=== PATIENT | female | born 1975 | race Caucasian/White ===

== ENCOUNTER 2016-10-17 21:10 | Emergency (ER) | payer MEDICAID ==
[2016-10-17 21:10] VITALS: BMI 27.3
[2016-10-17] MEDS ORDERED: Sodium Chloride 0.9% 1,000 ML IV ONE (22:18)
[2016-10-17] MEDS ORDERED: Iohexol 240 (50 ml) PO ONE (22:19)
--- NOTE | 2016-10-17 23:03 | C.PDOC ---
History Of Present Illness Patient is a 41 year old female who presents to the ER with a complaint of abdominal pain since 4pm yesterday; associated with nausea and vomiting. Patient states the pain is diffusely throughout her abdomen. Denies diarrhea, fever, or chills. Chief Complaint (Nursing): Abdominal Pain History Per: Patient History/Exam Limitations: no limitations Onset/Duration Of Symptoms: Days Current Symptoms Are (Timing): Still Present Location Of Pain/Discomfort: Diffuse Radiation Of Pain To:: None Quality Of Discomfort: Unable To Describe Associated Symptoms: Nausea, Vomiting. denies: Fever, Chills, Diarrhea Exacerbating Factors: None Alleviating Factors: None Recent travel outside of the [place]: No Abnormal Vaginal Bleeding: No Past Medical History Reviewed: Historical Data, Nursing Documentation, Vital Signs Vital Signs: Last Vital Signs Temp 98.0 F 10/18/16 01:55 Pulse 67 10/18/16 01:55 Resp 18 10/18/16 01:55 BP 103/70 10/18/16 01:55 Pulse Ox 100 10/18/16 02:39 - Medical History PMH: Depression, HTN - [facility] Procedures ESOPHAGOGASTRODUODENOSCOPY [EGD] W/CLOSED BIOPSY (05/24/14) Family History: States: Unknown Family Hx - Social History Hx Tobacco Use: No Hx Alcohol Use: No Hx Substance Use: No - Immunization History Hx Tetanus Toxoid Vaccination: No Hx Influenza Vaccination: Yes Hx Pneumococcal Vaccination: No Review Of Systems Constitutional: Negative for: Fever, Chills Gastrointestinal: Positive for: Nausea, Vomiting, Abdominal Pain (Diffuse). Negative for: Diarrhea Physical Exam - Physical Exam Appears: Non-toxic Skin: Normal Color, Warm, Dry Head: Atraumatic, Normacephalic Oral Mucosa: Moist Chest: Symmetrical, No Tenderness Cardiovascular: Rhythm Regular, No Murmur Respiratory: Normal Breath Sounds, No Rales, No Rhonchi, No Wheezing Gastrointestinal/Abdominal: Soft, Tenderness (LLQ, RLQ mostly), No Guarding, Rebound (RLQ) Neurological/Psych: Oriented x3, Normal Speech, Normal Cognition ED Course And Treatment - Laboratory Results Result Diagrams: 10/17/16 23:33 10/17/16 23:33 O2 Sat by Pulse Oximetry: 100 (Room air) Pulse Ox Interpretation: Normal - CT Scan/US CT abd/pel Other Rad Studies (CT/US): Read By Radiologist, Radiology Report Reviewed CT/US Interpretation: The pancreas is normal. No gallstones. No hydronephrosis or perinephric stranding. The bowel appears normal. The appendix is identified coronal images 50 through 54 measuring 4 mm in diameter. No. periappendiceal inflammatory changes. There is a 2 cm left ovarian cyst. IMPRESSION: Left ovarian cyst.EXAM: CT Abdomen and Pelvis With Intravenous Contrast. CLINICAL HISTORY: 41 years old, female; Pain; Abdominal pain and other: Lower abd; Patient HX: 7-; Additional. info: Abd pain. TECHNIQUE: Axial computed tomography images of the abdomen and pelvis with intravenous contrast. This CT. exam was performed using one or more of the following dose reduction techniques: automated. exposure control, adjustment of the mA and/or kV according to patient size, and/or use of iterative. reconstruction technique. Coronal and sagittal reformatted images were created and reviewed. CONTRAST: 100 mL of [id number] administered intravenously. EXAM DATE/TIME: 10/17/2016 10:16 PM. COMPARISON: No relevant prior studies available. FINDINGS : Liver and spleen are borderline prominent. Slight prominence of the vasculature of the left upper quadrant. Progress Note: CT abd/pel, blood work, and urinalysis ordered. Toradol and IV fluids administered. Disposition Counseled Patient/Family Regarding: Diagnosis - Disposition Referrals: [facility] [Outside] Disposition: HOME/ ROUTINE Disposition Time: 02:44 Condition: STABLE Prescriptions: Ondansetron ODT [Zofran ODT] 1 odt PO BID PRN #6 odt PRN Reason: Nausea/Vomiting Phenobarb/Hyoscy/Atropine/Scop [ Tablet] 16.2 mg PO Q6 #12 tablet Instructions: Gastroenteritis (ED), Acute Nausea and Vomiting (ED) - POA Present On Arrival: None - Clinical Impression Clinical Impression: Nausea, Vomiting, Gastroenteritis - Scribe Statement The provider has reviewed the documentation as recorded by the Veroibjudy Ricardo All medical record entries made by the Veroibe were at my direction and personally dictated by me. I have reviewed the chart and agree that the record accurately reflects my personal performance of the history, physical exam, medical decision making, and the department course for this patient. I have also personally directed, reviewed, and agree with the discharge instructions and disposition.
[2016-10-17 23:08] LABS: HCG,QUALITATIVE URINE NEGATIVE (NEGATIVE)
[2016-10-17 23:12] LABS: SQUAMOUS EPITHIAL 2 /hpf (0-5); URINE BACTERIA RARE (<OCC); URINE BILIRUBIN NEGATIVE (NEGATIVE); URINE BLOOD NEGATIVE (NEGATIVE); URINE CLARITY Clear (Clear); URINE COLOR Yellow (YELLOW); URINE GLUCOSE (UA) NORMAL (Normal); URINE HYALINE CAST 0-2 /lpf (0-2); URINE NITRATE NEGATIVE (NEGATIVE); URINE PROTEIN NEGATIVE (NEGATIVE); URINE UROBILINOGEN NORMAL mg/dL (0.2-1.0)
[2016-10-17 23:13] LABS: URINE LEUKOCYTE ESTERASE NEGATIVE Leu/uL (Negative)
[2016-10-17] MEDS ORDERED: Sodium Chloride 0.9% 1,000 ML ONE (23:18)
[2016-10-17] MEDS ORDERED: Iohexol 240 (50 ml) ONE (23:18)
[2016-10-17 23:36] LABS: BASO % 0.5 % (0.0-2.0); EOS # 0.1 K/uL (0.0-0.7); EOS % 1.5 % (0.0-4.0); HEMOGLOBIN 11.9 g/dL (11.0-16.0); LYMPH # 2.2 K/uL (1.0-4.3); LYMPH % 31.1 % (20.0-40.0); MEAN CELL VOLUME 91.9 fL (81.0-99.0); MEAN CORPUSCULAR HEMOGLOBIN 31.7 pg (27.0-31.0); MEAN CORPUSCULAR HGB CONC 34.5 g/dL (33.0-37.0); MEAN PLATELET VOLUME 8.4 fL (7.2-11.7); MONO # 0.5 K/uL (0.0-0.8); MONO % 7.3 % (0.0-10.0); NEUT # 4.2 K/uL (1.8-7.0); NEUT % 59.6 % (50.0-75.0); RBC 3.77 Mil/uL (3.80-5.20); RED CELL DISTRIBUTION WIDTH 13.2 % (11.5-14.5); WHITE BLOOD COUNT 7.1 K/uL (4.8-10.8)
[2016-10-17 23:50] LABS: ALBUMIN 3.5 g/dL (3.5-5.0)
[2016-10-17 23:53] LABS: GFR AFRICAN-AMERICAN > 60; GFR NON-AFRICAN AMERICAN > 60
[2016-10-17 23:54] LABS: ALB/GLOB RATIO 1.1 (1.0-2.1); ALT/SGPT 23 U/L (9-52); AST/SGOT 19 U/L (14-36); BLOOD UREA NITROGEN 13 mg/dL (7-17); CALCIUM 8.4 mg/dl (8.6-10.4); LIPASE 56 U/L (23-300)
[2016-10-18] MEDS ORDERED: Iodixanol 320 MG/ML 100 ML BOTTLE IV ONE (01:02)
[2016-10-18 02:30] VITALS: RESP 18
--- NOTE | 2016-10-18 02:36 | CT ---
EXAM: CT Abdomen and Pelvis With Intravenous Contrast CLINICAL HISTORY: 41 years old, female; Pain; Abdominal pain and other: Lower abd; Patient HX: 7--17; Additional info: Abd pain TECHNIQUE: Axial computed tomography images of the abdomen and pelvis with intravenous contrast. This CT exam was performed using one or more of the following dose reduction techniques: automated exposure control, adjustment of the mA and/or kV according to patient size, and/or use of iterative reconstruction technique. Coronal and sagittal reformatted images were created and reviewed. CONTRAST: 100 mL of [id number] administered intravenously. EXAM DATE/TIME: 10/17/2016 10:16 PM COMPARISON: No relevant prior studies available. FINDINGS: Liver and spleen are borderline prominent. Slight prominence of the vasculature of the left upper quadrant. The pancreas is normal. No gallstones. No hydronephrosis or perinephric stranding. The bowel appears normal. The appendix is identified coronal images 50 through 54 measuring 4 mm in diameter. No periappendiceal inflammatory changes. There is a 2 cm left ovarian cyst. IMPRESSION: Left ovarian cyst.
[2016-10-18 03:15] VITALS: BP 109/73; PULSE 74; TEMP 98.6; O2SAT 99
== END 2016-10-18 03:11 | disposition home or self-care (01) ==
LOC: C.ER 21:10
DX: K52.9 Noninfective gastroenteritis and colitis, unspecified (principal)
CPT/HCPCS: 74177; 80053; 81001; 83690; 84702; 84703; 85025; 96361; 96374; 99284; J1885; J7040; Q9966; Q9967

== ENCOUNTER 2017-03-03 03:54 | Emergency (ER) | payer SELFPAY ==
[2017-03-03 03:54] VITALS: BMI 27.3
[2017-03-03 03:59] VITALS: TEMP 98.4; O2SAT 98
[2017-03-03] MEDS ORDERED: Sodium Chloride 0.9% 500 ML IV STA (04:22)
[2017-03-03 04:28] LABS: HEMATOCRIT 39.1 % (34.0-47.0); MEAN CELL VOLUME 91.1 fL (81.0-99.0); MEAN CORPUSCULAR HEMOGLOBIN 30.9 pg (27.0-31.0); MEAN CORPUSCULAR HGB CONC 33.9 g/dL (33.0-37.0); MEAN PLATELET VOLUME 9.2 fL (7.2-11.7); RED CELL DISTRIBUTION WIDTH 13.8 % (11.5-14.5); WHITE BLOOD COUNT 5.2 K/uL (4.8-10.8)
[2017-03-03] MEDS ORDERED: Sodium Chloride 0.9% 1,000 ML ONE (04:44)
[2017-03-03 04:47] LABS: CHLORIDE 103 mmol/L (98-107); SODIUM 132 mmol/L (132-148)
[2017-03-03 04:49] LABS: GFR AFRICAN-AMERICAN > 60
[2017-03-03 04:50] LABS: ALKALINE PHOSPHATASE 48 U/L (38-126); ALT/SGPT 19 U/L (9-52); AST/SGOT 36 U/L (14-36); BLOOD UREA NITROGEN 17 mg/dL (7-17); CARBON DIOXIDE 19 mmol/L (22-30); GLUCOSE,RANDOM 94 mg/dL (65-105); TOTAL PROTEIN 8.2 g/dL (6.3-8.3)
[2017-03-03 04:51] LABS: CALCIUM 8.3 mg/dl (8.6-10.4)
[2017-03-03 04:52] LABS: POTASSIUM 4.2 mmol/L (3.6-5.2)
--- NOTE | 2017-03-03 05:01 | C.PDOC ---
History Of Present Illness 41 year old female presents to the ER with a complaint of dizziness that she describes as a spinning sensation since yesterday that worsens with positional change. Patient reports the dizziness is associated with nausea, vomiting, and epigastric discomfort. Patient notes she has a Hx of similar symptoms in the past at least once a year and has been seen in the ER for the same complaint. Denies abdominal pain at this time, change in vision, or headache. Time Seen by Provider: 03/03/17 04:05 Chief Complaint (Nursing): Abdominal Pain History Per: Patient History/Exam Limitations: no limitations Onset/Duration Of Symptoms: Hrs Current Symptoms Are (Timing): Still Present Location Of Pain/Discomfort: Epigastric Radiation Of Pain To:: None Quality Of Discomfort: Unable To Describe Associated Symptoms: Nausea, Vomiting. denies: Fever, Chills Exacerbating Factors: Other (Positional change) Alleviating Factors: None Recent travel outside of the [place]: No Past Medical History Reviewed: Historical Data, Nursing Documentation, Vital Signs Vital Signs: Last Vital Signs Temp 98.4 F 03/03/17 03:56 Pulse 78 03/03/17 03:56 Resp 14 03/03/17 03:56 BP 112/80 03/03/17 03:56 Pulse Ox 98 03/03/17 05:11 - Medical History PMH: Depression, HTN - [facility] Procedures ESOPHAGOGASTRODUODENOSCOPY [EGD] W/CLOSED BIOPSY (05/24/14) Family History: States: Unknown Family Hx - Social History Hx Tobacco Use: No Hx Alcohol Use: No Hx Substance Use: No - Immunization History Hx Tetanus Toxoid Vaccination: No Hx Influenza Vaccination: Yes Hx Pneumococcal Vaccination: No Review Of Systems Gastrointestinal: Positive for: Nausea, Vomiting. Negative for: Abdominal Pain Neurological: Positive for: Dizziness. Negative for: Headache Physical Exam - Physical Exam Appears: Non-toxic, No Acute Distress Skin: Normal Color, Warm, Dry Head: Atraumatic, Normacephalic Eye(s): bilateral: Normal Inspection, PERRL, EOMI Oral Mucosa: Moist Chest: Symmetrical, No Tenderness Cardiovascular: Rhythm Regular Respiratory: Normal Breath Sounds, No Rales, No Rhonchi, No Wheezing Gastrointestinal/Abdominal: Soft, No Tenderness Neurological/Psych: Oriented x3, Normal Speech, Normal Cognition, Other ( Reproducible dizziness with head movement.) ED Course And Treatment - Laboratory Results Result Diagrams: 03/03/17 04:26 03/03/17 04:26 O2 Sat by Pulse Oximetry: 98 (Room air) Pulse Ox Interpretation: Normal Progress Note: Blood work and POC ordered. Antivert, IV fluids, and zofran administered. Patient is now asymptomatic, denies any neurologic complaints, is ambulating well, and is tolerating PO. Patient will be discharged home on Antivert. Patient was instructed to follow up with physician/clinic, and to return to the ER in 1-2 days if no follow up can be arranged. Disposition Counseled Patient/Family Regarding: Diagnosis, Need For Followup, Rx Given - Disposition Referrals: Geoff Arce MD [Medical Doctor] - Disposition: HOME/ ROUTINE Disposition Time: 06:18 Condition: STABLE Additional Instructions: Take meds as directed Increase PO fluids Return to ER if worse Prescriptions: Meclizine [Meclizine*] 25 mg PO Q6 #14 tab Instructions: Vertigo (ED) Forms: [employer] (Pashto) - Clinical Impression Clinical Impression: Vertigo - Scribe Statement The provider has reviewed the documentation as recorded by the Scribjudy Rciardo All medical record entries made by the Scribe were at my direction and personally dictated by me. I have reviewed the chart and agree that the record accurately reflects my personal performance of the history, physical exam, medical decision making, and the department course for this patient. I have also personally directed, reviewed, and agree with the discharge instructions and disposition.
[2017-03-03 06:26] VITALS: BP 121/68; PULSE 81; RESP 16
== END 2017-03-03 06:25 | disposition home or self-care (01) ==
LOC: C.ER 03:54
DX: R42 Dizziness and giddiness (principal); I10 Essential (primary) hypertension
CPT/HCPCS: 80053; 85027; 96361; 96374; 99284; J2405; J7040

== ENCOUNTER 2017-04-17 17:33 | Emergency (ER) | payer MEDICAID ==
[2017-04-17 17:34] VITALS: BMI 27.3
[2017-04-17] MEDS ORDERED: Naproxen 550 mg Tab PO STA (18:57)
[2017-04-17] MEDS ORDERED: Naproxen 550 mg Tab PO ONE (19:01)
--- NOTE | 2017-04-17 19:43 | C.PDOC ---
History Of Present Illness <Rose Carrillo - Last Filed: 04/17/17 19:28> <Criselda Castro - Last Filed: 04/17/17 21:28> 41 y/o female hx HTN presents to the ED c/o left foot pain which start 3 month ago intermittently. The patient notes that the last three days the symptoms has persisted . The patient believes secondary to being on her feet all day at [email or web address] which is where she works. The patient also notes left mild left leg swelling. The patient denies chest pain,and SOB. (MatthewCriselda) <Rose Carrillo - Last Filed: 04/17/17 19:28> History Per: Patient Onset/Duration Of Symptoms: Days Current Symptoms Are (Timing): Still Present Additional History Per: Patient <Criselda Castro - Last Filed: 04/17/17 21:28> Time Seen by Provider: 04/17/17 18:21 Chief Complaint (Nursing): Lower Extremity Problem/Injury Past Medical History - Medical History PMH: Depression, HTN Denies: Chronic Kidney Disease Family History: States: Unknown Family Hx - Social History Hx Tobacco Use: No Hx Alcohol Use: No Hx Substance Use: No - Immunization History Hx Tetanus Toxoid Vaccination: No Hx Influenza Vaccination: Yes (2016) Hx Pneumococcal Vaccination: No <Rose Carrillo - Last Filed: 04/17/17 19:28> Reviewed: Historical Data, Nursing Documentation, Vital Signs Surgical History: No Surg Hx Family History: States: No Known Family Hx <Criselda Castro - Last Filed: 04/17/17 21:28> Vital Signs: Last Vital Signs Temp 97.9 F 04/17/17 17:37 Pulse 78 04/17/17 17:37 Resp 20 04/17/17 17:37 BP 124/86 04/17/17 17:37 Pulse Ox 97 04/17/17 19:43 - [facility] Procedures ESOPHAGOGASTRODUODENOSCOPY [EGD] W/CLOSED BIOPSY (05/24/14) Review Of Systems Except As Marked, All Systems Reviewed And Found Negative. Constitutional: Negative for: Fever Cardiovascular: Negative for: Chest Pain Respiratory: Negative for: Shortness of Breath Musculoskeletal: Positive for: Foot Pain (left ) <Criselda Castro - Last Filed: 04/17/17 21:28> Physical Exam - Physical Exam Appears: Non-toxic, No Acute Distress Skin: Dry Head: Atraumatic Oral Mucosa: Moist Neck: Supple Extremity: Tenderness ( point tenderness to the plantar aspect of the heal ), No Pedal Edema, Calf Tenderness (mild ), Capillary Refill (2<sec. ), No Deformity, No Swelling Neurological/Psych: Oriented x3, Normal Speech, Normal Cognition Gait: Steady <Criselda Castro - Last Filed: 04/17/17 21:28> ED Course And Treatment O2 Sat by Pulse Oximetry: 97 <Rose Carrillo - Last Filed: 04/17/17 19:28> - Laboratory Results Result Diagrams: 04/17/17 19:54 04/17/17 19:54 Progress Note: The case was discussed with Dr. Carrillo and agreed upon treatment. The patient is instructed to return to the ER to have a vascular study tommorrow. <Criselda Castro - Last Filed: 04/17/17 21:28> Disposition <Rose Carrillo - Last Filed: 04/17/17 19:28> - Disposition Disposition Time: 21:26 <Criselda Castro - Last Filed: 04/17/17 21:28> - Disposition Referrals: [facility] [Outside] Disposition: HOME/ ROUTINE Condition: STABLE Additional Instructions: Use shoe inserts. Wear supportive sneakers. Follow up with your PMD in 1-2 days. Prescriptions: Naproxen [Naprosyn] 1 tab PO BID PRN #20 tab PRN Reason: Pain Instructions: Plantar Fasciitis (ED) Forms: [employer] (Arabic) - Clinical Impression Clinical Impression: Left leg pain <Rose Carrillo - Last Filed: 04/17/17 19:28> - PA / AWNING FINISHER / Resident Statement MD/DO has examined the patient and agrees with the treatment plan. - Scribe Statement The provider has reviewed the documentation as recorded by the Scribe <Criselda Castro - Last Filed: 04/17/17 21:28> - Scribe Statement Reshma Gonzales (Criselda Castro)
[2017-04-17 20:09] LABS: BASO % 0.4 % (0.0-2.0); EOS # 0.1 K/uL (0.0-0.7); EOS % 2.2 % (0.0-4.0); HEMATOCRIT 40.1 % (34.0-47.0); LYMPH # 2.8 K/uL (1.0-4.3); LYMPH % 47.6 % (20.0-40.0); MEAN CELL VOLUME 91.9 fL (81.0-99.0); MEAN CORPUSCULAR HEMOGLOBIN 31.2 pg (27.0-31.0); MEAN PLATELET VOLUME 8.6 fL (7.2-11.7); MONO # 0.3 K/uL (0.0-0.8); MONO % 5.8 % (0.0-10.0); RED CELL DISTRIBUTION WIDTH 13.4 % (11.5-14.5); WHITE BLOOD COUNT 5.8 K/uL (4.8-10.8)
[2017-04-17 20:21] LABS: ALB/GLOB RATIO 1.2 (1.0-2.1); ALKALINE PHOSPHATASE 61 U/L (38-126); ALT/SGPT 27 U/L (9-52); AST/SGOT 25 U/L (14-36); BILIRUBIN,TOTAL 0.3 mg/dL (0.2-1.3); BLOOD UREA NITROGEN 14 mg/dL (7-17); CALCIUM 8.5 mg/dl (8.6-10.4); CARBON DIOXIDE 28 mmol/L (22-30); CHLORIDE 98 mmol/L (98-107); GFR AFRICAN-AMERICAN > 60; GLUCOSE,RANDOM 95 mg/dL (65-105); POTASSIUM 3.7 mmol/L (3.6-5.2); SODIUM 134 mmol/L (132-148); TOTAL PROTEIN 7.8 g/dL (6.3-8.3)
[2017-04-17] MEDS ORDERED: Enoxaparin 80 mg Syringe SC STA (20:25)
[2017-04-17] MEDS ORDERED: Enoxaparin 30 mg Syringe ONE (20:32)
[2017-04-17] MEDS ORDERED: Enoxaparin 60 mg Syringe ONE (20:33)
[2017-04-17 21:34] VITALS: BP 120/78; PULSE 80; RESP 18; TEMP 98; O2SAT 99
--- NOTE | 2017-04-18 08:35 | RAD ---
PROCEDURE: Left Foot Radiographs. HISTORY: pain COMPARISON: None. FINDINGS: BONES: Normal. No fracture. JOINTS: Normal. SOFT TISSUES: Normal. 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 Developmental variations as above
== END 2017-04-17 21:34 | disposition home or self-care (01) ==
LOC: C.ER 17:33
DX: M79.605 Pain in left leg (principal); I10 Essential (primary) hypertension
CPT/HCPCS: 73630; 80053; 82550; 85025; 85378; 99284; J1650

== ENCOUNTER 2017-07-24 23:20 | Emergency (ER) | payer MEDICAID ==
[2017-07-24 23:20] VITALS: BMI 27.3
[2017-07-24 23:37] VITALS: TEMP 98.3; O2SAT 98
--- NOTE | 2017-07-24 23:55 | C.PDOC ---
History Of Present Illness 41 year old female with a past medical history of hypertension presents to the ED stating she thought her blood pressure was high. Patient reports she had noticed some ear pressure and buzzing, prompting concern. No headaches, dizziness, visual changes, or shortness of breath. Patient reports she is compliant with her blood pressure meds. She has also been feeling stressed lately due to work. Time Seen by Provider: 07/24/17 23:43 Chief Complaint (Nursing): High Blood Pressure History Per: Patient History/Exam Limitations: no limitations Onset/Duration Of Symptoms: Mins Current Symptoms Are (Timing): Gone Quality Of Symptoms: Asymptomatic Past Medical History Reviewed: Historical Data, Nursing Documentation, Vital Signs Vital Signs: Last Vital Signs Temp 98.3 F 07/24/17 23:34 Pulse 70 07/25/17 00:12 Resp 18 07/25/17 00:12 BP 117/82 07/25/17 00:12 Pulse Ox 98 07/25/17 02:40 - Medical History PMH: Depression, HTN Denies: Chronic Kidney Disease Surgical History: - [facility] Procedures ESOPHAGOGASTRODUODENOSCOPY [EGD] W/CLOSED BIOPSY (05/24/14) Family History: States: Unknown Family Hx - Social History Hx Tobacco Use: No Hx Alcohol Use: No Hx Substance Use: No - Immunization History Hx Tetanus Toxoid Vaccination: No Hx Influenza Vaccination: Yes (2017) Hx Pneumococcal Vaccination: No Review Of Systems Eyes: Negative for: Vision Change ENT: Positive for: Other (ear pressure and buzzing) Cardiovascular: Negative for: Chest Pain Respiratory: Negative for: Shortness of Breath Neurological: Negative for: Headache, Dizziness Physical Exam - Physical Exam Appears: Non-toxic, No Acute Distress Skin: Warm, Dry, No Rash Head: Atraumatic, Normacephalic Eye(s): bilateral: Normal Inspection, PERRL, EOMI Ear(s): Bilateral: Normal Oral Mucosa: Moist Neck: Normal ROM Chest: Symmetrical Cardiovascular: Rhythm Regular, No Murmur Respiratory: Normal Breath Sounds, No Accessory Muscle Use, No Rales, No Rhonchi , No Wheezing Gastrointestinal/Abdominal: Soft, No Tenderness, No Distention Extremity: Bilateral: Atraumatic, Normal Color And Temperature, Normal ROM Neurological/Psych: Oriented x3, Normal Speech, Normal Cranial Nerves, No Cerebellar Signs, Normal Motor, Normal Sensation Gait: Steady ED Course And Treatment O2 Sat by Pulse Oximetry: 98 (RA) Pulse Ox Interpretation: Normal Medical Decision Making Medical Decision Making: Plan: On arrival blood pressure is normal, 116/85. No further emergency intervention is required. Patient remains AAOx3, without pain during examination. Counseled patient regarding diagnosis and advised to follow up with primary doctor. Disposition Counseled Patient/Family Regarding: Diagnosis - Disposition Referrals: Geoff Arce MD [Medical Doctor] - Disposition: HOME/ ROUTINE Disposition Time: 23:54 Condition: GOOD Additional Instructions: Please continue with your normal medications Follow up with your primary doctor Try diet, exercise and lifestyle changes to also help control blood pressure Instructions: High Blood Pressure (DC), Controlling Your Blood Pressure Through Lifestyle Forms: [employer] (Persian) - POA Present On Arrival: None - Clinical Impression Clinical Impression: Hypertension monitoring check done - PA / LABEL STAMPER / Resident Statement MD/DO has reviewed & agrees with the documentation as recorded. - Scribe Statement The provider has reviewed the documentation as recorded by the Scribe (Patricia Menon) All medical record entries made by the Scribe were at my direction and personally dictated by me. I have reviewed the chart and agree that the record accurately reflects my personal performance of the history, physical exam, medical decision making, and the department course for this patient. I have also personally directed, reviewed, and agree with the discharge instructions and disposition.
[2017-07-25 00:15] VITALS: BP 117/82; PULSE 70; RESP 18
== END 2017-07-25 00:12 | disposition home or self-care (01) ==
LOC: C.ER 23:20
DX: I10 Essential (primary) hypertension (principal)

== ENCOUNTER 2017-08-26 18:55 | Emergency (ER) | payer MEDICAID ==
[2017-08-26 18:55] VITALS: BMI 27.3
[2017-08-26 19:32] VITALS: BP 128/85; PULSE 100; RESP 20; TEMP 98.5; O2SAT 100
[2017-08-26] MEDS ORDERED: Tdap Vaccine 0.5 ml Vial (10-64 yrs) IM ONE ×2 (21:02→21:28)
[2017-08-26] MEDS ORDERED: Bacitracin 500 Units/gm Oint Foilpak UD TOP ONE (21:03)
--- NOTE | 2017-08-26 21:08 | C.PDOC ---
History Of Present Illness 41 y/o female presents to ED with c/o burn to right forearm 2 days ago at [employer] while at work in [employer]. Patient denies other injury, discharge, nausea, vomiting or any other complaints at this time. Time Seen by Provider: 08/26/17 20:43 Chief Complaint (Nursing): Abnormal Skin Integrity History Per: Patient History/Exam Limitations: no limitations Onset/Duration Of Symptoms: Days Current Symptoms Are (Timing): Still Present Past Medical History Reviewed: Historical Data, Nursing Documentation, Vital Signs Vital Signs: Last Vital Signs Temp 98.5 F 08/26/17 19:29 Pulse 100 H 08/26/17 19:29 Resp 20 08/26/17 19:29 BP 128/85 08/26/17 19:29 Pulse Ox 100 08/26/17 21:09 - Medical History PMH: No Chronic Diseases, Depression, HTN Surgical History: - [facility] Procedures ESOPHAGOGASTRODUODENOSCOPY [EGD] W/CLOSED BIOPSY (05/24/14) Family History: States: No Known Family Hx - Social History Hx Tobacco Use: No Hx Alcohol Use: No Hx Substance Use: No - Immunization History Hx Tetanus Toxoid Vaccination: No Hx Influenza Vaccination: Yes (2017) Hx Pneumococcal Vaccination: No Review Of Systems Constitutional: Negative for: Fever, Chills Cardiovascular: Negative for: Chest Pain Respiratory: Negative for: Shortness of Breath Gastrointestinal: Negative for: Nausea, Vomiting Skin: Positive for: Other (burn ) Physical Exam - Physical Exam Appears: Non-toxic, No Acute Distress Skin: Warm, Dry, No Rash, Other (Right forearm burnt area noted with open skin lesion. ) Head: Atraumatic, Normacephalic Eye(s): bilateral: PERRL, EOMI Oral Mucosa: Moist Neck: Normal ROM, Supple Cardiovascular: Rhythm Regular Respiratory: Normal Breath Sounds, No Rales, No Rhonchi, No Wheezing Gastrointestinal/Abdominal: Soft, No Tenderness, No Guarding, No Rebound Neurological/Psych: Oriented x3, Normal Speech, Normal Cognition ED Course And Treatment O2 Sat by Pulse Oximetry: 100 (RA) Pulse Ox Interpretation: Normal Disposition Counseled Patient/Family Regarding: Diagnosis, Need For Followup, Rx Given - Disposition Referrals: Geoff Arce MD [Medical Doctor] - Disposition: HOME/ ROUTINE Disposition Time: 21:27 Condition: GOOD Additional Instructions: Please apply bacitracin 2 times a day to burn on right arm. Take Tylenol or Motrin for pain. Follow up with Dr Andersen in 1-2 days. Return to ER for any signs of infection, swelling or other concern Prescriptions: Acetaminophen [Tylenol 325mg tab] 650 mg PO Q6 #30 tab Bacitracin OINT 1 applic TOP BID #1 tube Ibuprofen [Motrin] 600 mg PO TID #30 tab Instructions: Skin Griffith (DC) Forms: [employer] (Chinese), General Discharge Instructions - Clinical Impression Clinical Impression: Burn of forearm, right, first degree - PA / RAIL OPERATOR / Resident Statement MD/DO has reviewed & agrees with the documentation as recorded. - Scribe Statement The provider has reviewed the documentation as recorded by the Scribjudy Garcia All medical record entries made by the Veroibjudy were at my direction and personally dictated by me. I have reviewed the chart and agree that the record accurately reflects my personal performance of the history, physical exam, medical decision making, and the department course for this patient. I have also personally directed, reviewed, and agree with the discharge instructions and disposition.
[2017-08-26] MEDS ORDERED: Bacitracin 500 Units/gm Oint Foilpak UD ONE (21:22)
== END 2017-08-26 21:37 | disposition home or self-care (01) ==
LOC: C.ER 18:55
DX: T22.111A Burn of first degree of right forearm, initial encounter (principal); X15.0XXA Contact with hot stove (kitchen), initial encounter; Y93.G2 Activity, grilling and smoking food; Y92.511 Restaurant or cafe as the place of occurrence of the external cause; Y99.0 Civilian activity done for income or pay; Z23 Encounter for immunization

== ENCOUNTER 2017-10-31 11:05 | Emergency (ER) | payer MEDICAID ==
[2017-10-31 11:05] VITALS: BMI 27.3
[2017-10-31 11:17] VITALS: BP 135/84; PULSE 81; RESP 18; TEMP 97.9; O2SAT 100
--- NOTE | 2017-10-31 11:47 | C.PDOC ---
History Of Present Illness 42 year old female presents to ED with complaints of generalized body aches and feeling chills for one week. She reports several coworkers are ill. Patient wants a shot of vitamins or something to keep her from getting sick. She has not taken any medications. Time Seen by Provider: 10/31/17 11:34 Chief Complaint (Nursing): Flu-like Symptoms History Per: Patient History/Exam Limitations: no limitations Onset/Duration Of Symptoms: Days Current Symptoms Are (Timing): Still Present Past Medical History Reviewed: Historical Data, Nursing Documentation, Vital Signs Vital Signs: Last Vital Signs Temp 97.9 F 10/31/17 11:14 Pulse 81 10/31/17 11:14 Resp 18 10/31/17 11:14 BP 135/84 10/31/17 11:14 Pulse Ox 100 10/31/17 12:01 - Medical History PMH: Depression, HTN Surgical History: - [facility] Procedures ESOPHAGOGASTRODUODENOSCOPY [EGD] W/CLOSED BIOPSY (05/24/14) Family History: States: No Known Family Hx - Social History Hx Tobacco Use: No Hx Alcohol Use: No Hx Substance Use: No - Immunization History Hx Tetanus Toxoid Vaccination: No Hx Influenza Vaccination: Yes (2017) Hx Pneumococcal Vaccination: No Review Of Systems Constitutional: Positive for: Chills, Malaise. Negative for: Fever Eyes: Negative for: Redness ENT: Negative for: Ear Pain, Nose Congestion, Throat Pain Respiratory: Negative for: Cough, Shortness of Breath Gastrointestinal: Positive for: Diarrhea (x1). Negative for: Vomiting, Abdominal Pain Genitourinary: Negative for: Dysuria Skin: Negative for: Rash Neurological: Negative for: Headache, Dizziness Physical Exam - Physical Exam Appears: Non-toxic, No Acute Distress Skin: Normal Color, Warm, Dry Head: Atraumatic, Normacephalic Eye(s): bilateral: Normal Inspection, EOMI Ear(s): Bilateral: Normal Nose: Normal Oral Mucosa: Moist Throat: Normal, No Erythema, No Exudate Neck: Supple Chest: Symmetrical Cardiovascular: Rhythm Regular, No Murmur Respiratory: Normal Breath Sounds, No Rales, No Rhonchi, No Wheezing Extremity: Bilateral: Atraumatic, Normal ROM Neurological/Psych: Oriented x3, Normal Speech ED Course And Treatment O2 Sat by Pulse Oximetry: 100 (RA) Pulse Ox Interpretation: Normal Medical Decision Making Medical Decision Making: Impression: generalized bodyaches and malaise, likely viral. Exam was benign. Patient has no fever and vital signs stable. She wants a "shot". I explained we can offer Toradol IM for pain but supportive treatment is recommended. Plan: Toradol IM. Reassessment: Patient remained afebrile and in no distress. Report pain improved. I recommend rest, fluids, can try Airborne supplement or Energy-C packet to help with any cold symptoms. Disposition Counseled Patient/Family Regarding: Diagnosis, Need For Followup - Disposition Referrals: Geoff Arce MD [Medical Doctor] - Disposition: HOME/ ROUTINE Disposition Time: 11:56 Condition: GOOD Additional Instructions: Take Tylenol or Motrin alternating every 4-6 hours for Fever 100.4F or higher. Rest and drink plenty of fluids. Try symptomatic relief. Follow up with your primary medical doctor or clinic in 2-5 days for further evaluation. Return to the emergency department at any time if symptoms persist or worsen. Instructions: Viral Syndrome (DC) Forms: [address] ([place]) - POA Present On Arrival: None - Clinical Impression Clinical Impression: Viral syndrome - PA / INFORMATION TECHNOLOGY DIRECTOR / Resident Statement MD/DO has reviewed & agrees with the documentation as recorded. - Scribe Statement The provider has reviewed the documentation as recorded by the Scribe Bel Esp[place] Provider Attestation All medical record entries made by the Scribe were at my direction and personally dictated by me. I have reviewed the chart and agree that the record accurately reflects my personal performance of the history, physical exam, medical decision making, and the department course for this patient. I have also personally directed, reviewed, and agree with the discharge instructions and disposition.
== END 2017-10-31 12:11 | disposition home or self-care (01) ==
LOC: C.ER 11:05
DX: B34.9 Viral infection, unspecified (principal)
CPT/HCPCS: 96372; 99283; J1885